=== PATIENT | female | born 1965 | race Caucasian/White ===

== ENCOUNTER → 2016-05-13 | Outpatient (CLI) | payer BC | LOC: BRMIMAGING 14:27 | PROVIDERS: ATTEND Physician Assistant Medical | DX: J11.1 Influenza due to unidentified influenza virus with other respiratory manifestations (principal) | CPT/HCPCS: 71020-PO ==

== ENCOUNTER → 2016-06-04 | Outpatient (CLI) | payer BC | LOC: BRMIMAGING 11:36 | PROVIDERS: ATTEND Physician Assistant Medical | DX: M25.512 Pain in left shoulder (principal); M25.531 Pain in right wrist; R93.8 Abnormal findings on diagnostic imaging of other specified body structures; M13.812 Other specified arthritis, left shoulder; W19.XXXA Unspecified fall, initial encounter | CPT/HCPCS: 73050-PO; 73100-PO ==

== ENCOUNTER → 2017-02-12 | Outpatient (CLI) | payer BC | LOC: CIMAGING 14:08 | PROVIDERS: ATTEND Physician Assistant Medical | DX: Z12.31 Encounter for screening mammogram for malignant neoplasm of breast (principal) | CPT/HCPCS: G0202 ==

== ENCOUNTER → 2018-07-09 | Outpatient (CLI) | payer OTHER | LOC: BRMIMAGING 08:18 | PROVIDERS: ATTEND Physician Assistant Medical | DX: Z12.31 Encounter for screening mammogram for malignant neoplasm of breast (principal) ==